=== PATIENT | male | born 1945 | race Caucasian/White ===

== ENCOUNTER → 2018-09-02 08:59 | Outpatient (CLI) | payer MEDICARE, BC, SELFPAY ==
--- NOTE | 2018-09-02 09:01 | CI_ITS ---
Cerebrovascular Exam Indications: 785.9 Bruit. IMPRESSIONS 1. The bilateral vertebral arteries are patent with normal antegrade flow. 2. Study suggests less than 20% stenosis involving the right internal carotid artery. 3. Study suggests less than 20% stenosis involving the left internal carotid artery. History: Coronary artery disease. Risk factors: Current tobacco use. Hypertension. Carotid duplex study. Complete study and Doppler flow study including spectral analysis, color and montoya scale imaging. Height: Height: 177.8cm. Height: 70in. Weight: Weight: 74.8kg. Weight: 164.7lb. Body mass index: BMI: 23.7kg/m^2. Body surface area: BSA: 1.93m^2. Location: Vascular laboratory. Patient status: Outpatient. Tables: Arterial flow: + +--------+--------+ Location V sys V ed + +--------+--------+ Right CCA - proximal 65.2cm/s 14.1cm/s + +--------+--------+ Right CCA - distal 35.4cm/s 13.5cm/s + +--------+--------+ Right ECA 81.6cm/s 15.6cm/s + +--------+--------+ Right ICA - proximal 41.8cm/s 15cm/s + +--------+--------+ Right ICA - mid 49.9cm/s 16.6cm/s + +--------+--------+ Right ICA - distal 71.4cm/s 23.8cm/s + +--------+--------+ Right vertebral 45.3cm/s 9.8cm/s + +--------+--------+ Left CCA - proximal 73.9cm/s 19.1cm/s + +--------+--------+ Left CCA - distal 59.5cm/s 14.4cm/s + +--------+--------+ Left ECA 71cm/s 15.7cm/s + +--------+--------+ Left ICA - proximal 44.3cm/s 16.3cm/s + +--------+--------+ Left ICA - mid 64.4cm/s 25.1cm/s + +--------+--------+ Left ICA - distal 75.7cm/s 33cm/s + +--------+--------+ Left vertebral 28.7cm/s 11cm/s + +--------+--------+ Velocity ratios: + + + + + + Right, V sys Right, V ed Left, V sys Left, V ed + + + + + + Max ICA/dist CCA 2.02 1.76 1.27 2.29 + + + + + + (Report amended ) Electronically signed by: Duong Campoverde [id number]
--- NOTE | 2018-09-02 09:04 | US_ITS ---
US Arterial Ankle Brachial Ind History: Claudication, rest pain, smoker ORDERING PHYSICIAN: Parker Soto MD PATIENT AGE: 73 years TECHNIQUE: Segmental pressures obtained of both right and left leg. These are compared to brachial blood pressure to yield index at each level sampled including summary ASHLYN. The data sheets from the procedure are available in PACS FINDINGS Rest study only performed today No prior studies available for comparison. Blood pressures reported are in millimeters mercury. RIGHT LEG ASHLYN = 0.99. RIGHT LEG TBI=0.60 Brachial BP: 149 Thigh BP: 144 Calf BP: 157 Ankle PT: 147 Ankle DP : 144 Digit =90 LEFT LEG ASHLYN = 1.25 LEFT LEG TBI= 0.64 Brachial BPD: 146 Thigh BP: 166 Calf BP: 190 Ankle PT:186 Ankle DP: 171 Digit = 95 Pulses and waveforms: Normal IMPRESSION: The ABIs as reported above are within normal limits. Waveforms and pulses are also unremarkable.
== END ==
PROVIDERS: PCP Family Medicine; Visit Provider Internal Medicine
DX: E78.5 Hyperlipidemia, unspecified (principal); F17.200 Nicotine dependence, unspecified, uncomplicated; G62.9 Polyneuropathy, unspecified; I11.9 Hypertensive heart disease without heart failure; I25.10 Atherosclerotic heart disease of native coronary artery without angina pectoris; I34.0 Nonrheumatic mitral (valve) insufficiency; I65.29 Occlusion and stenosis of unspecified carotid artery; I73.9 Peripheral vascular disease, unspecified; J44.9 Chronic obstructive pulmonary disease, unspecified; R09.89 Other specified symptoms and signs involving the circulatory and respiratory systems; R91.8 Other nonspecific abnormal finding of lung field
CPT/HCPCS: 93880; 93922